=== PATIENT | female | born 1980 | race Caucasian/White ===

== ENCOUNTER 2016-12-15 17:29 | Outpatient (CLI) | payer BC | END 2016-12-15 19:24 | disposition home or self-care (01) | LOC: GENOP 17:29 | DX: O42.92 Full-term premature rupture of membranes, unspecified as to length of time between rupture and onset of labor (principal); Z3A.30 30 weeks gestation of pregnancy | CPT/HCPCS: 81001; 83518; G0463 ==

== ENCOUNTER 2021-10-24 20:52 | Emergency (ER) | payer BC ==
[~2021-10-24 20:52] MED LIST: COLACE 100MG C100 MG PO; IBUPROFEN600 MG PO; NORCO 5-325 TA1 EACH PO; SYNTHROID75 MCG PO
== END 2021-10-24 22:45 | disposition home or self-care (01) ==
LOC: ER1 20:52
DX: S90.32XA Contusion of left foot, initial encounter (principal); F17.290 Nicotine dependence, other tobacco product, uncomplicated; W23.1XXA Caught, crushed, jammed, or pinched between stationary objects, initial encounter
CPT/HCPCS: 73630; 99283

== ENCOUNTER → 2021-11-10 | Outpatient (CLI) | payer BC | LOC: KOH-I 15:41 | DX: S92.812A Other fracture of left foot, initial encounter for closed fracture (principal) | CPT/HCPCS: 73610; 73630 ==